=== PATIENT | female | born 1980 | race Caucasian/White ===

== ENCOUNTER → 2017-09-03 | Outpatient (CLI) | payer OTHER ==
--- NOTE | 2017-09-03 15:32 | US ---
EXAMINATION TYPE: US OB <= 14 wk fetus DATE OF EXAM: 09/03/2017 COMPARISON: NONE CLINICAL HISTORY: Z36 Confirm Dates. EXAM PERFORMED: Transabdominal (TA) EXAM MEASUREMENTS: GESTATIONAL AGE / DATING Physician Established: (9 weeks/0 days) EDC: 04/08/2018 Dates by LMP: (9 weeks/0 days) EDC: 04/08/2018 Dates by First Scan: No previous this is first scan Dates by Current Scan for: (9 weeks/0 days) EDC: 04/08/2018 MATERNAL ANATOMY Uterus: 11.0 x 6.1 x 7.2 cm Right Ovary: 2.9 x 1.8 x 2.3 cm Left Ovary: 3.1 x 1.5 x 2.2 cm Post CDS / Adnexa: wnl Presence of free fluid: No Presence of corpus luteal cyst: Yes, right ovary measuring 2.0 x 1.1 x 1.3 cm Presence of subchorionic bleed: Yes, measuring 2.4 x 1.2 x 3.7 cm GESTATION / SURVEY CRL: 2.3 cm (9 weeks/0 days) Yolk Sac (normal less than 6mm): 3 mm Heart Rate: 170 bpm Rhythm: Normal IUP: Viable IUP Date of LMP: 07/02/2017 IMPRESSION: 1. Viable IUP, measurement consistent with 9 weeks 0 day gestation and an EDC of 04/08/2018. 2. There is a subchorionic hemorrhage measuring 2.4 x 1.2 x 3.7 cm.
== END | disposition home or self-care (01) ==
LOC: RADUSWWP 14:15
PROVIDERS: ATTEND Obstetrics & Gynecology
DX: O20.8 Other hemorrhage in early pregnancy (principal); Z3A.09 9 weeks gestation of pregnancy
CPT/HCPCS: 76801

== ENCOUNTER 2017-12-31 15:30 | Outpatient (CLI) | payer OTHER ==
[2017-12-31 16:53] VITALS: BP 99/60; PULSE 70; RESP 18; TEMP 98.3
--- NOTE | 2018-01-08 06:47 | P.MSEPDOC ---
Presenting Problems - Arrival Data Date of Arrival on Unit: 12/31/17 Time of Arrival on Unit: 15:30 Mode of Transport: Ambulatory - Complaint OB-Reason for Admission/Chief Complaint: Rule Out PROM, Rule Out SROM Comment: STATES SHE HAS TO WEAR A PANTY LINER SINCE 5 YEAR OLD WAS BORN. STATES LEAKING ALLL THE TIME- FEELS FLUID LIKE AND NOT MUCOUSY. Medical History - Information : 8 Para: 5 Term: 5 : 0 Abortions: Spontaneous or Elective: 2 Number of Living Children: 5 - Gestational Age Gestational Age by JAN (wks/days): 26 Weeks and 2 Days Review of Systems - Review of Systems Constitutional: No problems Breast: No problems ENT: No problems Cardiovascular: No problems Respiratory: No problems Gastrointestinal: No problems Genitourinary: No problems Musculoskeletal: No problems Neurological: No problems Skin: No problems Vital Signs - Temperature Temperature: 98.3 F Temperature Source: Oral - Pulse Right Brachial Pulse Rate: 70 Pulse Assessment Method: Automatic Cuff - Respirations Respiratory Rate: 18 Oxygen Delivery Method: Room Air O2 Sat by Pulse Oximetry: 100 - Blood Pressure Right Arm Blood Pressure: 99/60 Blood Pressure Mean: 73 Blood Pressure Source: Automatic Cuff Medical Screen Scoring (Pre) - Cervical Exam Dilation: 0 cm = 0 Membranes: Intact - Uterine Contractions Frequency: N/A - Maternal Vital Signs Maternal Temperature: N/A Maternal Blood Pressure: N/A Signs of Preeclampsia: N/A Maternal Respirations: N/A - Pain Assessment Pain Scale Used: Numeric (1 - 10) Pain Intensity: 0 - Maternal Trauma Maternal Trauma: N/A - Assessment Baseline FHR: 145 Heart Rate - NICHD Category: Category I (Normal) = 0 Station: N/A - Total Score Total Score (Pre): 0 - Level of Risk Level of Risk: N/A Physician Notification (Pre) - Physician Notified Physician/Practitioner Notifed:: JANIE Spoke With: JANIE New Order Received: Yes - Notification Comment Comment: DISCHARGE HOME Disposition - Disposition OB Disposition: Discharge to home Discharge Date: 12/31/17 Discharge Time: 16:15 I agree with the RN Medical Screening Exam: Yes Risk & Benefit of care provided described in d/c instruction: Yes Diagnosis: FALSE LABOR BEFORE 37 COMPLETED WEEKS OF GEST, SECOND TRI
== END 2017-12-31 16:15 | disposition home or self-care (01) ==
LOC: FBPOP 15:30
PROVIDERS: ATTEND Obstetrics & Gynecology
DX: O47.02 False labor before 37 completed weeks of gestation, second trimester (principal); Z3A.26 26 weeks gestation of pregnancy
CPT/HCPCS: 84112; G0463; 99213

== ENCOUNTER 2018-03-31 02:05 | Inpatient (IN) | payer OTHER ==
[2018-03-31] MEDS ORDERED: ceFAZolin IN SWFI 2 GM/20 ML SYRINGE IVP ONE (02:19)
[2018-03-31] MEDS ORDERED: CITRIC ACID-SODIUM CITRATE 15 ML CUP PO ONE (02:19)
[2018-03-31] MEDS ORDERED: LACTATED RINGERS 1,000 ML IV SCH ×2 (02:30→03:45)
[2018-03-31] MEDS ORDERED: OXYTOCIN 10 UNIT/ML 1 ML VIAL ONE (02:39)
[2018-03-31] MEDS ORDERED: ePHEDrine SULFATE/0.9% NACL/PF 50 MG/5 ML SYRINGE IV ONE (02:39)
[2018-03-31] MEDS ORDERED: ONDANSETRON 4 MG/2 ML VIAL ONE (02:39)
[2018-03-31] MEDS ORDERED: fentaNYL (PF) 50 MCG/ML 2 ML AMP ONE (02:39)
[2018-03-31] MEDS ORDERED: MORPHINE SULFATE (PF) 0.3 MG/0.3 ML SYR ONE (02:39)
[2018-03-31] MEDS ORDERED: KETOROLAC 30 MG/ML 1 ML VIAL ONE (02:39)
[2018-03-31] MEDS ORDERED: NALBUPHINE 10 MG/ML VIAL (10ML MDV) ONE (02:39)
[2018-03-31] MEDS ORDERED: ONDANSETRON 4 MG/2 ML VIAL IVP PRN (03:04)
[2018-03-31] MEDS ORDERED: MORPHINE SULFATE 4 MG/ML SYRINGE IVP PRN (03:04)
[2018-03-31] MEDS ORDERED: NALOXONE 0.4 MG/ML 1 ML VIAL IV PRN (03:04)
[2018-03-31] MEDS ORDERED: diphenhydrAMINE 50 MG/ML 1 ML VIAL IVP PRN ×2 (03:04→03:37)
[2018-03-31 03:10] LABS: Basophils % (A) 0 %; Eosinophils # (A) 0.1 k/uL (0-0.7); Eosinophils % (A) 1 %; Lymphocytes # (A) 2.7 k/uL (1.0-4.8); Lymphocytes % (A) 35 %; MCH 31.3 pg (25.0-35.0); MCHC 34.2 g/dL (31.0-37.0); MCV 91.5 fL (80.0-100.0); Mean Platelet Volume 9.6; Monocytes # (A) 0.3 k/uL (0-1.0); Monocytes % (A) 4 %; Neutrophils # (A) 4.6 k/uL (1.3-7.7); Neutrophils % (A) 59 %; Platelet Count 165 k/uL (150-450); RBC 3.83 m/uL (3.80-5.40); RDW 13.2 % (11.5-15.5); WBC 7.8 k/uL (3.8-10.6)
[2018-03-31] MEDS ORDERED: HYDROcodone/APAP 7.5-325MG 1 EACH TAB PO PRN (03:37)
[2018-03-31] MEDS ORDERED: HYDROcodone/APAP 5-325MG 1 EACH TAB PO PRN (03:37)
[2018-03-31] MEDS ORDERED: SIMETHICONE 80 MG CHEWABLE PO PRN (03:37)
[2018-03-31] MEDS ORDERED: diphenhydrAMINE 25 MG CAP PO PRN (03:37)
[2018-03-31] MEDS ORDERED: diphenhydrAMINE 50 MG CAP PO PRN (03:37)
[2018-03-31] MEDS ORDERED: ZOLPIDEM 5 MG TAB PO PRN (03:37)
--- NOTE | 2018-03-31 03:43 | P.HPOB ---
History of Present Illness H&P Date: 03/31/18 Chief Complaint: Contractions This is a 37-year-old female 8 para 5 with an estimated date of confinement of 04/07/2018, estimated gestational age of 38-6/7 weeks, who presented to labor and delivery with complaints of contractions that became stronger and more regular over the last hour. She was unsure if she had any rupture of membranes. Her baby is in a breech presentation and she is scheduled for a section later this week. care has been with Dr. Douglas and has been uncomplicated per patient. labs: Hepatitis B surface antigen-negative RPR-nonreactive Rubella-immune Blood type-O+ Antibody screen-negative Hemoglobin-11.8 Toxoplasma screen-negative Random glucose-117 Group B streptococcus-negative Obstetrical history: . History of 5 vaginal deliveries at term and 2 miscarriages. Review of Systems Constitutional: Denies chills, Denies fever Eyes: denies blurred vision, denies pain Ears, nose, mouth and throat: Denies headache, Denies sore throat Cardiovascular: Denies chest pain, Denies shortness of breath Respiratory: Denies cough Gastrointestinal: Reports abdominal pain (Contractions) Genitourinary: Reports pelvic pain, Reports Musculoskeletal: Reports low back pain Integumentary: Denies pruritus, Denies rash Neurological: Denies numbness, Denies weakness Psychiatric: Reports depression Past Medical History Past Medical History: No Reported History History of Any Multi-Drug Resistant Organisms: None Reported Past Surgical History: Tonsillectomy Additional Past Surgical History / Comment(s): Marston teeth, D&C Past Anesthesia/Blood Transfusion Reactions: No Reported Reaction Past Psychological History: Depression Smoking Status: Former smoker Past Alcohol Use History: None Reported Past Drug Use History: None Reported - Past Family History Father Family Medical History: No Reported History, Congestive Heart Failure (CHF) Medications and Allergies Home Medications Medication Instructions Recorded Confirmed Type Sertraline HCl 1 tab PO DAILY 02/06/15 03/31/18 History Doxylamine Succinate [Unisom] 25 mg PO ONCE PRN 12/31/17 03/31/18 History Pnv,Calcium 72/Iron/Folic Acid 1 tab PO DAILY 12/31/17 03/31/18 History [ Plus Tablet] Pyridoxine [Vitamin B-6] 1 mg PO ONCE PRN 12/31/17 03/31/18 History Allergies Allergy/AdvReac Type Severity Reaction Status Date / Time codeine AdvReac Nausea & Verified 03/31/18 02:07 Vomiting Exam Osteopathic Statement: *. No significant issues noted on an osteopathic structural exam other than those noted in the History and Physical/Consult. Vital Signs Temp Pulse Resp BP 03/31/18 02:19 96.8 F L 76 18 124/81 Intake and Output 03/30/18 03/30/18 03/31/18 14:59 22:59 06:59 Other: Weight 66.224 kg HEENT: Within normal limits Heart: Regular rate and rhythm Lungs: Clear to auscultation bilaterally Abdomen: Cervix: 7-8 cm with intact membranes and breech presentation heart tones: Reactive Contractions: Every 2-5 minutes Extremities: Negative Homans Results Result Diagrams: 03/31/18 02:24 Assessment and Plan (1) 38 weeks gestation of Current Visit: Yes Status: Acute Code(s): Z3A.38 - 38 WEEKS GESTATION OF SNOMED Code(s): 35867609 (2) Breech presentation Current Visit: Yes Status: Acute Code(s): O32.1XX0 - MATERNAL CARE FOR BREECH PRESENTATION, UNSP SNOMED Code(s): 5879271 (3) Advanced maternal age in multigravida Current Visit: Yes Status: Acute Code(s): O09.529 - SUPERVISION OF ELDERLY MULTIGRAVIDA, UNSPECIFIED TRIMESTER SNOMED Code(s): 177823068 Plan: Proceed with urgent primary section. I have discussed the risks, benefits, and alternative therapies for the above- mentioned procedure and for both sedation/anesthesia as well as necessary blood products administration, if indicated, as they pertain to this patient. The patient has indicated her understanding and acceptance of the risks and procedures discussed.
[2018-03-31] MEDS ORDERED: OXYTOCIN 20 UNITS/1000 ML NS 1,000 ML IV SCH (03:45)
--- NOTE | 2018-03-31 03:48 | P.OP ---
Date of Procedure: 03/31/18 Preoperative Diagnosis: 1. Intrauterine at 38-6/7 weeks. 2. Breech presentation. 3. Advance maternal age. Postoperative Diagnosis: Same Procedure(s) Performed: Primary low transverse section Anesthesia: spinal (Duramorph) Surgeon: Li Vargas Ship Erector #1: Bia Vigil Estimated Blood Loss (ml): 500 Pathology: none sent Condition: stable Disposition: floor Indications for Procedure: This is a 37-year-old female 8 para 5 at 38-6/7 weeks who presented in active labor and was found to be 7-1/2 cm with breech presentation. I have discussed the risks, benefits, and alternative therapies for the above- mentioned procedure and for both sedation/anesthesia as well as necessary blood products administration, if indicated, as they pertain to this patient. The patient has indicated her understanding and acceptance of the risks and procedures discussed. Operative Findings: A viable male is noted in the beth breech presentation with scores of 9 at 1 minute and 9 at 5 minutes and weight of 6 lbs. 5 oz. Normal uterus tubes and ovaries are noted. Description of Procedure: The patient is taken to the operating room where she is placed in the dorsal supine position with leftward tilt after spinal Duramorph anesthesia is given. She is prepped and draped in the normal sterile fashion. Skin was tested and found to be adequately anesthetized. A Pfannenstiel skin incision was made with a scalpel. A second knife was used to carry the incision down to the underlying layer of fascia. The fascia was nicked in the midline with a scalpel and then extended laterally bilaterally with Noyola scissors. The anterior lip of the fascia was grasped with 2 Julia clamps and then dissected off the underlying rectus muscle in the midline with Noyola scissors. The inferior aspect of the fascial incision was grasped with 2 Julia clamps and dissected off the underlying rectus muscle and the midline with Noyola scissors. Next the peritoneum layer was tented up with 2 hemostats and then entered sharply with the scalpel. The incision is extended superiorly and inferiorly with Metzenbaum scissors. Next a DeLee retractor is placed. The vesicouterine peritoneum is entered sharply with Metzenbaum scissors and extended laterally bilaterally with Metzenbaum scissors and then the bladder flap is pushed inferiorly. The lower uterine segment is incised in transverse fashion with the scalpel and then bluntly entered with a hemostat. Clear fluid is noted. The incision was then extended laterally bilaterally with 2 fingers. Next the 's buttocks is delivered through the incision. The remainder of the infant easily delivered with the head in a flexed position. Nose and mouth are bulb suctioned. Cord is clamped and cut. is taken to warmer by nursing staff. Uterine fundus is gently massaged and placenta is delivered manually. Uterus is exteriorized and cleared of all clots and debris. Uterine incision is closed with 0 Vicryl suture in a running locked fashion. A second layer of 0 Vicryl suture is used in a running fashion for hemostasis. There was noted to be a fairly significant bleeder on the left corner of the incision along the uterine artery. Several stitches were placed along the uterine artery on the left for hemostasis. It appeared adequate hemostasis was noted however there was still a small ooze noted. At this point FloSeal was applied. Excellent hemostasis is noted at this point. The vesicouterine peritoneum is reapproximated with 2-0 Vicryl suture in a running fashion. Posterior cul-de- sac is suctioned of all clots and debris. Uterus is returned to the abdomen. Incision is noted to be hemostatic. Peritoneal layer is closed with 0 Vicryl suture in a running fashion. Muscle layer is reapproximated with 0 Vicryl suture in interrupted fashion. Fascia layer is then closed with 0 PDS suture with 2 sutures meeting in the midline and the knots buried in either side and in the midline. The subcutaneous tissue was then closed with 2-0 Vicryl suture. Skin layer was then closed with danilo. All sponge and needle counts are correct. The patient is taken to recovery room in stable condition.
[2018-03-31 04:02] VITALS: BMI 25.8
[2018-03-31] MEDS: SENNOSIDES-DOCUSATE SODIUM 1 EACH TAB PO SCH ×2 (07:36→19:26)
[2018-03-31] MEDS: SERTRALINE 50 MG TAB PO SCH (15:33)
[2018-03-31] MEDS: KETOROLAC 30 MG/ML 1 ML VIAL IVP PRN (19:26)
[2018-04-01] MEDS: KETOROLAC 30 MG/ML 1 ML VIAL IVP PRN (03:13)
--- NOTE | 2018-04-01 05:57 | P.PN ---
Progress Note - Text Progress Note Date: 04/01/18 Postoperative day 1 status post section under spinal anesthesia and intrathecal Duramorph for postoperative analgesia.The patient is doing well, there is mild generalized skin itching. There are no other anesthesia related complications. The patient denies any paresthesia or weakness in the lower extremities. Further management as per the patient primary team.
[2018-04-01] MEDS: SENNOSIDES-DOCUSATE SODIUM 1 EACH TAB PO SCH ×2 (07:26→19:34)
[2018-04-01 07:59] LABS: Basophils % (A) 0 %; Eosinophils # (A) 0.1 k/uL (0-0.7); Eosinophils % (A) 1 %; HCT 25.5 % (34.0-46.0); Lymphocytes # (A) 1.3 k/uL (1.0-4.8); Lymphocytes % (A) 15 %; MCH 31.6 pg (25.0-35.0); MCHC 33.4 g/dL (31.0-37.0); MCV 94.8 fL (80.0-100.0); Mean Platelet Volume 9.4; Monocytes # (A) 0.3 k/uL (0-1.0); Monocytes % (A) 4 %; Neutrophils # (A) 6.8 k/uL (1.3-7.7); Neutrophils % (A) 80 %; Platelet Count 124 k/uL (150-450); RBC 2.69 m/uL (3.80-5.40); RDW 13.5 % (11.5-15.5); WBC 8.6 k/uL (3.8-10.6)
[2018-04-01] MEDS: ACETAMINOPHEN TAB 325 MG TAB PO PRN ×2 (07:59→19:34)
[2018-04-01 08:08] LABS: HGB 8.5 gm/dL (11.4-16.0)
--- NOTE | 2018-04-01 08:36 | P.PNOBGPC ---
Subjective - Subjective Principal diagnosis: POD 1 Interval history: Overall doing well she is involuting, voiding, and tolerating a diet. It is noted that her he will did fall from 8-07/22. She is currently asymptomatic. Vital signs are stable. Patient reports: Reports appetite normal : doing well Objective - Vital Signs Latest vital signs: Vital Signs Temp Pulse Resp BP Pulse Ox 04/01/18 07:30 98.5 F 90 16 98/59 100 04/01/18 07:28 16 100 04/01/18 06:00 16 04/01/18 04:00 16 04/01/18 03:11 81 16 92/53 04/01/18 02:00 16 04/01/18 00:00 98.8 F 95 16 75/42 98 03/31/18 22:00 16 03/31/18 20:00 99.5 F 87 16 97/61 98 03/31/18 16:00 97.7 F 80 15 103/66 100 03/31/18 12:00 97.8 F 77 16 98/61 99 Intake and Output 03/31/18 04/01/18 04/01/18 22:59 06:59 14:59 Other: # Voids 1 1 - Exam Lungs: bilateral: normal Chest: Normal S1, Normal S2 Extremities: Present: normal Abdomen: Present: normal appearance, soft. Absent: distention, tenderness Incision: Present: normal, dry, intact Uterus: Present: normal, firm - Labs Labs: Abnormal Lab Results - Last 24 Hours (Table) 04/01/18 Range/Units 07:20 RBC 2.69 L (3.80-5.40) m/uL Hgb 8.5 L D (11.4-16.0) gm/dL Hct 25.5 L (34.0-46.0) % Plt Count 124 L (150-450) k/uL
[2018-04-01] MEDS: IBUPROFEN 600 MG TAB PO PRN ×2 (15:30→23:03)
[2018-04-01] MEDS: SERTRALINE 50 MG TAB PO SCH (19:27)
[2018-04-02] MEDS: ACETAMINOPHEN TAB 325 MG TAB PO PRN ×2 (02:35→08:17)
[2018-04-02] MEDS: IBUPROFEN 600 MG TAB PO PRN ×2 (05:13→12:46)
[2018-04-02] MEDS: SENNOSIDES-DOCUSATE SODIUM 1 EACH TAB PO SCH (08:06)
[2018-04-02 08:49] VITALS: RESP 18
[2018-04-02 08:51] VITALS: BP 121/74; PULSE 81; TEMP 97.8
[2018-04-02 08:52] LABS: Basophils % (A) 0 %; Eosinophils % (A) 0 %; HCT 26.6 % (34.0-46.0); HGB 8.8 gm/dL (11.4-16.0); Lymphocytes # (A) 1.2 k/uL (1.0-4.8); Lymphocytes % (A) 17 %; MCH 31.3 pg (25.0-35.0); MCHC 33.3 g/dL (31.0-37.0); MCV 94.1 fL (80.0-100.0); Mean Platelet Volume 9.9; Monocytes # (A) 0.2 k/uL (0-1.0); Monocytes % (A) 3 %; Neutrophils # (A) 5.7 k/uL (1.3-7.7); Neutrophils % (A) 79 %; Platelet Count 149 k/uL (150-450); RBC 2.82 m/uL (3.80-5.40); RDW 13.5 % (11.5-15.5); WBC 7.3 k/uL (3.8-10.6)
--- NOTE | 2018-04-02 09:26 | P.DS ---
Providers Date of admission: 03/31/18 02:16 Expected date of discharge: 04/02/18 Attending physician: Adithya Douglas Primary care physician: Stated None Hospital Course: Patient is doing very well postop day 2. She is ambulating, voiding, and she is tolerating her diet. She voices no complaints. Her vital signs are stable and afebrile. Heart regular, lungs clear, extremities are without pain. Her abdomen is soft incisions clean dry and intact and she does have bowel sounds. We'll plan discharged home later today. Prescription for Motrin has been provided. She did not she declines any narcotics. Prescription for breast pump also provided. All the questions are answered for her and discharge instructions were thoroughly reviewed we'll plan to remove danilo prior to discharge and she will follow up with me in 1 week. Hemoglobin is noted to be stable today at 8.8 she'll plan to continue her iron tablets once home. It is noted she has blood loss anemia. But she is again asymptomatic Patient Condition at Discharge: Good Plan - Discharge Summary New Discharge Prescriptions: New Ibuprofen [Motrin] 600 mg PO Q6HR PRN #30 tab PRN Reason: Pain No Action Sertraline HCl 1 tab PO DAILY Pnv,Calcium 72/Iron/Folic Acid [ Plus Tablet] 1 tab PO DAILY Pyridoxine [Vitamin B-6] 1 mg PO ONCE PRN PRN Reason: Nausea Doxylamine Succinate [Unisom] 25 mg PO ONCE PRN PRN Reason: Nausea And Vomiting Discharge Medication List Sertraline HCl 1 tab PO DAILY 02/06/15 [History] Doxylamine Succinate [Unisom] 25 mg PO ONCE PRN 12/31/17 [History] Pnv,Calcium 72/Iron/Folic Acid [ Plus Tablet] 1 tab PO DAILY 12/31/17 [ History] Pyridoxine [Vitamin B-6] 1 mg PO ONCE PRN 12/31/17 [History] Ibuprofen [Motrin] 600 mg PO Q6HR PRN #30 tab 04/02/18 [Rx] Follow up Appointment(s)/Referral(s): Adithya Douglas DO [Doctor of Osteopathic Medicine] - 1 Week Activity/Diet/Wound Care/Special Instructions: No heavy lifting, limit stairs and driving, and pelvic rest. If any high temperatures, heavy bleeding, or severe pain call my office Discharge Disposition: HOME SELF-CARE
--- NOTE | 2018-04-07 07:23 | CDI ---
Last Revision, June 2017 Documentation Clarification Form Date: 04/07/18 From: Winnie Tam Keri Barriga, Technical Support Assistant Hours-8:30 am & 5 pm MDavid Admit Date: 03/31/2018 2:16:00 AM Patient Name: Michaela Jara Visit Number: [id number] Discharge Date: 04/02/18 ATTENTION: The Clinical Documentation Specialists (CDI) and [facility] Coding Staff appreciate your assistance in clarifying documentation. Please respond to the clarification below the line at the bottom and electronically sign. The CDI & [facility] Coding staff will review the response and follow-up if needed. Please note: Queries are made part of the Legal Health Record. If you have any questions, please contact the author of this message via ITS. Adithya Lowry , DO A diagnosis of blood loss anemia lacks specificity to accurately reflect your patients severity of condition and clarification is needed. History/Risk Factors: s/p C/S Clinical indicators: EBL-500 Hemoglobin: 12.0, 8.5, 8.8 Hematocrit: 35.0, 25.5, 26.6 Treatment: iron, monitoring labs In order to capture the severity of condition, please clarify acuity of the type of blood loss anemia: Acute blood loss anemia Acute on chronic blood loss anemia Chronic blood loss anemia Other, please specify Please continue to document in your progress notes and discharge summary in order to capture severity of illness and risk of mortality. Include clinical findings that support your diagnosis. acute blood loss anemia MTDD
== END 2018-04-02 15:58 | disposition home or self-care (01) | DRG 765 ==
LOC: FBPOP 02:05 → 4FBP 02:16
PROVIDERS: ADMIT Obstetrics & Gynecology; ATTEND Obstetrics & Gynecology
PROC: 10D00Z1 Extraction of Products of Conception, Low, Open Approach (ICD-10-PCS; principal; 2018-03-31 02:52)
DX: O32.1XX0 Maternal care for breech presentation, not applicable or unspecified (principal); D62 Acute posthemorrhagic anemia; O99.02 Anemia complicating childbirth; O75.82 Onset (spontaneous) of labor after 37 completed weeks of gestation but before 39 completed weeks gestation, with delivery by (planned) cesarean section; O99.344 Other mental disorders complicating childbirth; F32.9 Major depressive disorder, single episode, unspecified; Z3A.38 38 weeks gestation of pregnancy; Z37.0 Single live birth; L29.9 Pruritus, unspecified; Z87.891 Personal history of nicotine dependence; Z79.899 Other long term (current) drug therapy; Z82.49 Family history of ischemic heart disease and other diseases of the circulatory system; Z88.5 Allergy status to narcotic agent
CPT/HCPCS: 59025; 85025; 86850; 86900; 86901; 99213